=== PATIENT | female | born 1990 | race Caucasian/White ===

== ENCOUNTER → 2018-11-22 13:12 | Outpatient (CLI) | payer SELFPAY ==
--- NOTE | 2018-11-22 | DI.US.S_ITS ---
PROCEDURE: US OB >= 14 WEEKS FETUS INDICATIONS: ANATOMY SCAN OUTSIDE/PRIOR DATING DATA: Last menstrual period (LMP): 06/24/18 LMP-based estimated date of delivery (MICHELLE): 03/31/19. First dating scan (date and location): 11/22/18. Estimated date of delivery (MICHELLE) from first dating scan: 03/31/19. TECHNIQUE: Real-time scanning was performed of the fetus, with image documentation and biometric measurements. Endovaginal scanning: No COMPARISON: None. FINDINGS: General: A single living intrauterine gestation is present. Presentation: Vertex. Placenta: Placental position is posterior, without previa. Amniotic fluid index: 19.2 cm, normal range is 5-24 cm. heart rate: 140 beats per minute. Maternal cervical canal: 4.3 cm long. Normal lower limit is 2.5 cm. biometrics: Biparietal diameter: 21 weeks 5 days Head circumference: 21 weeks 5 days Abdominal circumference: 22 weeks 1 day Femur length: 21 weeks Estimated gestational age from initial scan: 21 weeks 4 days Composite gestational age from present scan: 21 weeks 4 days Estimated weight and percentile: 437 g; 46 percentile Measurement variability for biometric dating: +/- 7 days from 14 weeks to 15 weeks 6 days gestation, +/- 10 days from 16 weeks to 21 weeks 6 days gestation, +/- 2 weeks from 22 weeks to 27 weeks 6 days gestation, +/- 3 weeks for 28 weeks gestation or later. weight reference: 4500 g or EFW >90/95% is considered macrosomia or large for gestational age. EFW <10% is small for gestational age. EFW 5% or less is considered intra-uterine growth restriction. Anatomic survey: Neuro: Ventricles are non-dilated at less than 10 mm. Cisterna magna is normal at 3-11 mm. Cerebellum is normal in size and morphology. Nuchal skin fold: Normal at less than 6 mm between 14-21 weeks gestational age. Face: Nose and lips, facial profile are normal. Spine: No evidence for spina bifida. Heart: 4-chambered heart is present, with normal ventricular outflow tracts. Diaphragm: Diaphragm is intact. Stomach: Left-sided stomach is present. Kidneys: No hydronephrosis. Normal is less than 5 mm in 2nd trimester, less than 7 mm in 3rd trimester. Cord: 3-vessel cord has orthotopic insertion. Bladder: Normal in size. Extremities: All 4 extremities identified. IMPRESSION: Single living IUP redemonstrated and interval growth is normal. Normal anatomic survey. Dictated by: Donta ACKERMAN Interpreted: Toma Garrison MD on 11/22/2018 at 15:50 Approved by: Toma Garrison M.D. on 11/22/2018 at 16:03
== END ==
DX: Z36.89 Encounter for other specified antenatal screening (principal); Z3A.21 21 weeks gestation of pregnancy
CPT/HCPCS: 76811